=== PATIENT | male | born 1980 | race Hispanic/Latino ===

== ENCOUNTER 2023-10-05 06:23 | Emergency (ER) | payer OTHER, SELFPAY ==
[2023-10-05] MEDS ORDERED: Bupivacaine PF 0.5% 30 ML VIAL ONE (07:36)
== END 2023-10-05 08:30 | disposition home or self-care (01) ==
LOC: CSHERS 06:23
DX: K08.89 Other specified disorders of teeth and supporting structures (principal); E11.9 Type 2 diabetes mellitus without complications
CPT/HCPCS: 64450; S0020